=== PATIENT | female | born 1980 | race Caucasian/White ===

== ENCOUNTER → 2016-07-02 | Outpatient (CLI) | payer BC | END | disposition disaster alternative care site (69) | LOC: GRAD 12:26 | DX: C50.811 Malignant neoplasm of overlapping sites of right female breast (principal); N64.89 Other specified disorders of breast | CPT/HCPCS: A9577; C8908 ==

== ENCOUNTER → 2016-09-20 | Outpatient (CLI) | payer BC ==
[2016-09-20 12:40] LABS: HEMATOCRIT 39.9 % (33.0-46.0); HEMOGLOBIN 12.5 g/dL (11.0-15.0); MCH 25.1 pg (27.0-34.0); MCHC 31.3 gm/dL (32.0-36.5); RBC 4.99 M/uL (3.50-5.50); RDW-CV 14.8 % (11.9-14.6); WBC 9.3 K/uL (4.0-11.0)
[2016-09-20 12:45] LABS: INR - (THERAPEUTIC) 0.94 (0.92-1.07); PROTIME 9.9 SECONDS (9.8-11.4)
--- NOTE | 2016-09-21 16:13 | NUR ---
Unable to reach patient for follow up call following breast biopsy 09/20/2016.
== END | disposition disaster alternative care site (69) ==
LOC: GOPD 08-23
PROVIDERS: Radiology Diagnostic Radiology
PROC: 0H9T3ZX Drainage of Right Breast, Percutaneous Approach, Diagnostic (ICD-10-PCS; principal; 2016-09-20)
DX: N60.22 Fibroadenosis of left breast (principal); R92.8 Other abnormal and inconclusive findings on diagnostic imaging of breast
CPT/HCPCS: J1100; J2001; J2405; J7030; J7050